=== PATIENT | female | born 1960 | race Caucasian/White ===

== ENCOUNTER → 2017-01-21 | Outpatient (CLI) | payer OTHER | LOC: BRMIMAGING 11:25 | PROVIDERS: ATTEND Internal Medicine | DX: K76.0 Fatty (change of) liver, not elsewhere classified (principal); N28.1 Cyst of kidney, acquired | CPT/HCPCS: 76700-PO ==

== ENCOUNTER → 2018-05-08 | Outpatient (CLI) | payer OTHER | LOC: FIMAGING 10:51 | DX: N63.13 Unspecified lump in the right breast, lower outer quadrant (principal); R92.2 Inconclusive mammogram; Z98.890 Other specified postprocedural states ==

== ENCOUNTER 2018-12-11 11:23 | Outpatient (CLI) | payer OTHER ==
[2018-12-11] MEDS ORDERED: PROPOFOL/EMULSION 500 MG/50 ML BOTTLE IV ONE ×2 (11:46→14:11)
[2018-12-11] MEDS ORDERED: PROPOFOL 200 MG/20 ML VIAL ONE (11:47)
[2018-12-11] MEDS ORDERED: NS 1,000 ML IV SCH (12:30)
[2018-12-11] MEDS ORDERED: MIDAZOLAM 2 MG/2 ML VIAL IVP ONE (12:30)
--- NOTE | 2018-12-11 12:30 | PDANEPAE ---
ANE History of Present Illness MRI for left shoulder pain and back pain ANE Past Medical History - Cardiovascular History Hx Hypertension: Yes Hx Arrhythmias: No Hx Chest Pain: No Hx Coronary Artery / Peripheral Vascular Disease: No Hx CHF / Valvular Disease: No Hx Palpitations: No - Pulmonary History Hx COPD: No Hx Asthma/Reactive Airway Disease: No Hx Recent Upper Respiratory Infection: No Hx Oxygen in Use at Home: No Hx Sleep Apnea: Yes Pulmonary History Comment: "Asthma only when I have bronchitis" - Neurologic History Hx Cerebrovascular Accident: No Hx Seizures: No Hx Dementia: No Neurologic History Comment: Fibromyalgia - Endocrine History Hx Diabetes: No Hypothyroid: Yes Hyperthyroid: No Obesity: moderate Endocrine History Comment: Hypothyroidism. Hashimotos - Renal History Hx Renal Disorders: No - Liver History Hx Hepatic Disorders: No Hepatic History Comment: Non-Alcoholic Fatty Liver Disease - Neurological & Psychiatric Hx Hx Neurological and Psychiatric Disorders: No - Cancer History Hx Cancer: No - Congenital Disorder History Hx Congenital Disorders: No - GI History GERD: mild Hx Gastrointestinal Disorders: Yes Gastrointestinal History Comment: Reflux. Esophageal ulders 1997 - Other Health History Other Health History: Osteoporosis and osteopenia - Chronic Pain History Chronic Pain: Yes - Surgical History Prior Surgeries: Endometriosis. Hysterectomy. Abdominoplasty. Breast reduction. Right rotator cuff. Partial discectomy L4-5 ANE Review of Systems Review of systems is: negative Review of Systems: - Exercise capacity Exercise capacity: >=4 METS METS (RN): 1 METS ANE Patient History - Allergies Allergies/Adverse Reactions: codeine phosphate [From Codeine Phosphate Soluble] Allergy (Intermediate, Verified 11/14/18 17:17) sulfamethoxazole [From Bactrim] Allergy (Intermediate, Verified 11/14/18 17:17) Other-Enter Comments trimethoprim [From Bactrim] Allergy (Intermediate, Verified 11/14/18 17:17) Other-Enter Comments - Home Medications Home medications: home medication list seen and reviewed Home Medications: Cymbalta 30 MG (*) 30 mg PO DAILY 05/30/16 [Last Taken 12/10/18] Losartan-Hctz 100-25 mg Tab 1 tab PO DAILY 05/30/16 [Last Taken 12/10/18] Omeprazole 20 mg PO DAILY 11/14/18 [Last Taken 12/10/18] Synthroid 112.5 mcg PO DAILY 11/14/18 [Last Taken 12/11/18] Trulicity IM 11/14/18 [Last Taken 12/09/18] Invokana 300 mg PO DAILY 12/08/18 [Last Taken 12/10/18] - NPO status NPO Status: no food or drink >8 hours - Anes Hx Anes Hx: post operative nausea and vomiting - Smoking Hx Smoking Status: Current some day smoker - Family Anes Hx Family Anes Hx: none Family Hx Anesthesia Complications: None ANE Labs/Vital Signs - Labs Result Diagrams: 12/11/18 12:17 - Vital Signs Vital Signs: reviewed preoperatively; see RN documention for details Height: 154.94 cm Weight: 72.575 kg ANE Physical Exam - Airway Neck exam: FROM Mallampati Score: Class 2 Mouth exam: normal dental/mouth exam - Pulmonary Pulmonary: no respiratory distress - Cardiovascular Cardiovascular: regular rate and rhythym - ASA Status ASA Status: III ANE Anesthesia Plan Anesthesia Plan: GA w LMA
[2018-12-11] MEDS ORDERED: SUCCINYLCHOLINE CHLORIDE 200 MG/10 ML VIAL ONE ×2 (12:49→12:51)
[2018-12-11] MEDS ORDERED: ROCURONIUM 100 MG/10 ML VIAL ONE (12:50)
[2018-12-11] MEDS ORDERED: NALOXONE HCL 0.4 MG/ML INJ IVP PRN (16:15)
--- NOTE | 2018-12-11 16:15 | POSTANESTH ---
Post Anesthetic Evaluation Cardiovascular Status: Normal, Stable Respiratory Status: Normal, Stable Level of Consciousness/Mental Status: Can Participate in Eval Pain Control: Adequate, Prn Tx Ordered Nausea/Vomiting Control: Adequate, Prn Tx Ordered Complications Possibly Related to Anesthesia: None Noted
[2018-12-11 16:23] VITALS: BP 136/82
[2018-12-11] MEDS ORDERED: ONDANSETRON 4 MG/2 ML VIAL ONE (20:00)
== END 2018-12-11 16:39 | disposition home or self-care (01) ==
LOC: FIMAGING 11:23
PROVIDERS: ATTEND Orthopaedic Surgery
DX: M19.012 Primary osteoarthritis, left shoulder (principal); M50.321 Other cervical disc degeneration at C4-C5 level; M51.26 Other intervertebral disc displacement, lumbar region
CPT/HCPCS: J0330; J2250; J2405; J2704